=== PATIENT | male | born 1985 | race Caucasian/White ===

== ENCOUNTER 2024-11-14 22:29 | Emergency (ER) | payer OTHER ==
[~2024-11-14] VITALS: Ht 167.6 cm; Wt 154.0 kg
[2024-11-15] MEDS ORDERED: KETOROLAC TROMETHAMINE 60 MG/2 ML VIAL IM ONE (00:15)
[2024-11-15 00:28] LABS: BASOPHILS 0.4 % (0.2-1.2); EOSINOPHILS 3.3 % (0.8-7.0); HEMATOCRIT 43.3 % (40.1-51.0); HEMOGLOBIN 14.1 g/dL (13.7-17.5); LYMPHOCYTES 28.7 % (21.8-53.1); MCH 29.3 PG (25.7-32.2); MCHC 32.6 g/dL (32.3-36.5); MCV 89.8 fL (79.0-92.2); MONOCYTES 6.9 % (5.3-12.2); NEUTROPHILS 60.5 % (34.0-67.9); PLATELET COUNT 273 K/uL (163-337); RBC 4.82 M/uL (4.63-6.08)
[2024-11-15 00:43] LABS: ALBUMIN 3.6 g/dL (3.4-5.0); ALBUMIN/GLOBULIN RATIO 0.97 (1.1-2.4); ANION GAP 5.8 (7-21); BILIRUBIN, TOTAL 0.2 mg/dL (0.2-1.0); BUN/CREATININE RATIO 16.48 (6.0-28.6); CALCIUM 9.4 mg/dL (8.5-10.1); CREATININE, SERUM 0.91 mg/dL (0.70-1.30); MAGNESIUM 2.3 mg/dL (1.8-2.4); POTASSIUM 3.8 mmol/L (3.5-5.1); PROTEIN, TOTAL 7.3 g/dL (6.4-8.2)
[2024-11-15] MEDS ORDERED: ATHLETE S FOOT TOP (01:08)
[2024-11-15] MEDS ORDERED: HYDROCODONE BIT/ACETAMINOPHEN 5/325 MG 1 TAB HOME.PACK PO ONE (01:15)
[2024-11-15 01:17] VITALS: BP 136/94
== END 2024-11-15 01:18 | disposition home or self-care (01) ==
LOC: ED 22:29
PROVIDERS: Internal Medicine
DX: M72.2 Plantar fascial fibromatosis (principal); B35.3 Tinea pedis
CPT/HCPCS: 36415; 80053; 83036; 83735; 84550; 85025; 86140; 96372; 99283; A9270; J1885